=== PATIENT | female | born 1960 | race Caucasian/White ===

== ENCOUNTER → 2017-03-22 | Day surgery (SDC) | payer BC ==
[~2017-03-22] VITALS: Ht 162.6 cm; Wt 140.4 kg
[~2017-03-22] MED LIST: *ONDANSETRON 4 MG VIAL PERIprocedural Use ONLY ONE; *morphine SULFATE 8 MG/ML PERIprocedure ONLY ONE; CHLORHEXIDINE GLUCONATE 2 % 1 PACK (2 CLOTHS) TOPICAL PRN; DEXTROSE 5% IV PUSH PRN; DO NOT ADM ANY ANTICOAGULANT DRUGS PRN; INSULIN HUMAN REGULAR 1,000 UNITS/10 ML VIAL SQ PRN; KETOROLAC TROMETHAMINE 30 MG/ML (IVP) VIAL IV PUSH PRN; KETOROLAC TROMETHAMINE 30 MG/ML (IVP) VIAL ONE; LACTATED RINGER'S 1000 ML IV PRN; LEVO100T5 PO; METOPROLOL TARTRATE 25 MG TAB PO PRN; NEOSTIGMINE 3 MG/3 ML SYR IV ONE; ONDANSETRON IV PUSH PRN; OXYTOCIN 10 UNIT/ML AMP ONE; PHENYLEPH/NS 1000 MCG/10 ML SYR IV ONE; POVIDONE IODINE 5% (ANTISEPSIS KIT) 4 APPLICATIONS EACH NARE PRN; PROPOFOL 200 MG/20 ML AMP IV ONE; PROT40TA PO; SILVER NITR/POTASSIUM NITRATE APPLICATORS ONE; SODIUM CHLORID 0.9% 500 ML IV PRN; WATER IV PUSH PRN; oxyCODONE/ACETAMINOPHEN 5 MG/325 MG TAB PO PRN
[2017-03-22 10:37] LABS: AUTOMATED NEUTROPHIL # 7.1 TH/MM3 (1.8-7.7); BASOPHIL % 0.3 % (0.0-2.0); EOSINOPHIL # 0.2 TH/MM3 (0-0.4); EOSINOPHIL % 1.6 % (0.0-4.0); HEMO FLAGS DIFF FINAL; LYMPH % 26.4 % (9.0-44.0); LYMPHOCYTE # 2.9 TH/MM3 (1.0-4.8); MEAN CELL VOLUME 88.3 FL (80.0-100.0); MEAN CORPUSCULAR HEMOGLOBIN 28.9 PG (27.0-34.0); MEAN CORPUSCULAR HGB CONC 32.8 % (32.0-36.0); MONO % 6.6 % (0.0-8.0); NEUT % 65.1 % (16.0-70.0); PLATELET COUNT 199 TH/MM3 (150-450); RED BLOOD COUNT 4.87 MIL/MM3 (4.00-5.30); RED CELL DISTRIBUTION WIDTH 15.3 % (11.6-17.2); WHITE BLOOD COUNT 10.9 TH/MM3 (4.0-11.0)
--- NOTE | 2017-03-22 11:16 | MH ---
cc: RYNE MIRANDA M.D. DATE OF ADMISSION: 03/22/2017 HISTORY OF PRESENT ILLNESS The patient is a 57-year-old white female, G3, P3, who presented to my office initially at the end of January 2017. She reported that she has been having a 10-year history of periods lasting for three weeks, and then recently she had one that lasted for six weeks. She does have some cramping when she has the bleeding. She denies any other pain or complaint. She had a recent thyroid level that was normal with her primary doctor. She is morbidly obese and work-up thus far in the office involved an ultrasound which showed the uterus to be 10.4 x 4.5 x 4.8, with an endometrial stripe of 6 mm. They also described a 4.2 x 2.6 x 4.9 hypoechoic mass suspected at the level of the cervix posteriorly with blood flow on the Doppler imaging. They did not visualize either of the ovaries and there was no free fluid. Radiology recommended a follow-up MRI to further identify what is going on in the posterior cervix which we did and showed again about a 4.5 x 3.6 cm mass in the posterior cervical area which they feel has similar characteristics to the myometrium and could be a cervical fibroid. No adenopathy or any other findings were noted. We also did an endometrial biopsy in the office on the patient due to her bleeding, however, the endometrial tissue was insufficient for diagnosis. The endocervical tissue was benign. I recommended to the patient that we should have further sampling of her endometrial cavity to get definitive tissue to rule out any pathology as the cause of her abnormal bleeding for such a long time and the patient agreed. We have decided to proceed with a MyoSure D&C. PAST MEDICAL HISTORY 1. History of a DVT. 2. Fibromyalgia. 3. Chronic back pain. 4. Hypothyroidism. 5. Obesity. PAST SURGICAL HISTORY 1. x2. 2. D&C x2. 3. Tonsillectomy. 4. Partial thyroidectomy. MEDICATIONS Medications currently are: 1. Levothyroxine. 2. Protonix. ALLERGIES 1. LEVAQUIN. 2. BACTRIM. 3. PLAQUENIL. SOCIAL HISTORY No tobacco. Rare alcohol. No drug use. She is and works in [place]. FAMILY HISTORY Ovarian cancer in a maternal aunt. Colon cancer in a paternal aunt. Coronary artery disease. WHE[employer]OR HISTORY No abnormal Pap. No history of STDs. OB HISTORY Three full-term deliveries, one by vaginal and two by . PHYSICAL EXAMINATION VITAL SIGNS: Weight 308. Blood pressure 130/84. Pulse 70. BREASTS: Without masses, nodes or discharge. CHEST: Clear to auscultation bilaterally. CARDIAC: Regular rate and rhythm without murmur, rub or gallop. ABDOMEN: Morbidly obese. No hepatosplenomegaly. No CVA tenderness. I cannot palpate any pelvic mass. PELVIC: Normal external female genitalia without lesions. Vaginal vault without lesions. Cervix without lesions. Uterus and ovaries are very difficult to palpate due to her morbid obesity. I cannot appreciate the posterior cervical mass identified on the ultrasound and MRI. LABORATORY DATA Other laboratory values on the patient really are all discussed in the HPI, except for her Pap smear which came back as negative. ASSESSMENT Perimenopausal menometrorrhagia with incomplete sampling and a posterior cervical mass, most likely a fibroid. PLAN MyoSure D&C. Ryne Miranda MD CCD/BT /6:28 PM /11:02 AM
--- NOTE | 2017-03-22 11:53 | EKG ---
Date Performed: 03/22/2017 Time Performed: 09:22:11 PTAGE: 57 years EKG: Sinus rhythm POSSIBLE INFERIOR MYOCARDIAL INFARCTION , PROBABLY OLD BORDERLINE ECG NO PREVIOUS TRACING DOCTOR: Prince Sofia Interpretating Date/Time 03/22/2017 11:51:27
[2017-03-22 14:18] VITALS: BP 145/69; PULSE 58; RESP 16; TEMP 98.5; O2SAT 96
--- NOTE | 2017-03-24 08:15 | MP ---
cc: RYNE MIRANDA M.D. DATE OF SURGERY 03/22/2017 PREOPERATIVE DIAGNOSIS Perimenopausal menorrhagia with an insufficient endometrial biopsy. POSTOPERATIVE DIAGNOSES 1. Perimenopausal menorrhagia with an insufficient endometrial biopsy. 2. Endometrial polyp. PROCEDURE PERFORMED D&C with MyoSure. OPERATING SURGEON Dr. Ryne Miranda. ANESTHESIA General by facemask. FINDINGS AT SURGERY One endometrial polyp noted. COMPLICATIONS None. BLOOD LOSS 50 cc. PROCEDURE IN DETAIL After proper consents were obtained, the patient was taken to the operating room where general by face mask anesthesia was applied. She was then placed in dorsal lithotomy position, sterilely prepped and draped in her bladder was drained. At this time due to her morbid obesity it was difficult to visualize her cervix. I had to use several different retractors to even identify the anterior lip and grasped that with a single-tooth tenaculum. I then sounded the uterus to about 12 cm and it deviated to her right. I then dilated that cervix as best I could to about a dilator about #17 and then I was able to place the MyoSure scope using normal saline as distending medium into the uterine cavity which revealed very benign-appearing cavity except for one polyp. I then performed the MyoSure and removed the polyp completely and sampled any other areas of the uterine lining that I felt needed sampling. We then removed our instrumentation. There was a small tear on the cervix from the force that we had to pull down on and I sewed that with a 2-0 Vicryl suture x1. Counts were correct. Hemostasis was assured and the patient was stable to the recovery room. MD SARAH Cat/SSB /8:03 AM /7:59 AM
== END | disposition home or self-care (01) ==
LOC: HSDC 08:33
PROVIDERS: ATTEND Obstetrics & Gynecology
DX: N92.4 Excessive bleeding in the premenopausal period (principal); N92.0 Excessive and frequent menstruation with regular cycle; N84.0 Polyp of corpus uteri; E66.01 Morbid (severe) obesity due to excess calories; Z68.43 Body mass index [BMI] 50.0-59.9, adult; Z86.718 Personal history of other venous thrombosis and embolism; M79.7 Fibromyalgia; G89.29 Other chronic pain; M54.9 Dorsalgia, unspecified; E03.9 Hypothyroidism, unspecified; Z01.818 Encounter for other preprocedural examination; Z01.810 Encounter for preprocedural cardiovascular examination
CPT/HCPCS: 00952; 36415; 58558; 85025; 86850; 86900; 86901; 88305; 93005; J1885; J2270; J2370; J2405; J2710; J3010; J7120; J2590